=== PATIENT | female | born 1955 | race Caucasian/White ===

== ENCOUNTER 2022-07-23 10:58 | Emergency (ER) | payer MEDICARE ==
[2022-07-23] MEDS ORDERED: Sodium Chloride 0.9% 10 ML Syringe FLUSH PRN (11:00)
[2022-07-23] MEDS ORDERED: Pantoprazole 40 MG Vial IVPUSH ONE (11:01)
[2022-07-23] MEDS ORDERED: HYDROmorphone 0.5 MG/0.5 ML Syringe IVPUSH ONE (11:01)
[2022-07-23] MEDS ORDERED: Sodium Chloride 0.9% 500 ML IV ONE (11:02)
[2022-07-23] MEDS ORDERED: Iopamidol 612 MG/ML 100 ML Bottle IV SCH (11:15)
[2022-07-23] MEDS ORDERED: Sodium Chloride 0.9% 75 ML IV SCH (11:15)
[2022-07-23] MEDS ORDERED: Acetaminophen 500 MG Tab PO ONE (11:21)
[2022-07-23 11:26] LABS: ESTIMATED GFR 82 mL/min (>60)
[2022-07-23] MEDS ORDERED: Magnesium Sulfate/Water 2 GM in Premix Bag 1 BAG IV ONE (11:59)
[2022-07-23] MEDS ORDERED: Potassium Chloride 20 MEQ Tab.ER PO ONE (11:59)
[2022-07-23] MEDS: Potassium Chloride 10 MEQ in Premix Bag 1 BAG IV SCH ×2 (12:16→13:11)
[2022-07-23] MEDS ORDERED: Cephalexin 250 MG Cap PO ONE (13:13)
== END 2022-07-23 15:30 | disposition home or self-care (01) ==
LOC: JP.ED 10:58
DX: K52.9 Noninfective gastroenteritis and colitis, unspecified (principal); L03.115 Cellulitis of right lower limb; M06.9 Rheumatoid arthritis, unspecified; E87.6 Hypokalemia; I10 Essential (primary) hypertension; R00.0 Tachycardia, unspecified; F17.210 Nicotine dependence, cigarettes, uncomplicated; Z88.8 Allergy status to other drugs, medicaments and biological substances
CPT/HCPCS: 36415; 74177; 80053; 83605; 83690; 85025; 86140; 87040; 93005; 93010; 96365; 96366; 96368; 96375; 99283; 99284-25; A9270-GY; C9113; J1170; J3475; J3480; J3490; J7040; Q9967

== ENCOUNTER 2023-01-09 09:15 | Emergency (ER) | payer MEDICARE ==
[2023-01-09] MEDS ORDERED: Sodium Chloride 0.9% 10 ML Syringe FLUSH PRN (09:32)
[2023-01-09 09:53] LABS: BASOPHILS ABSOLUTE AUTO 0.08 K/uL (0.00-0.10); HEMATOCRIT 39.1 % (34.3-46.0); HEMOGLOBIN 14.1 g/dL (11.2-15.5); IMMATURE GRAN ABSOLUTE AUTO 0.03 K/uL (0.00-0.23); IMMATURE GRAN PERCENT AUTO 0.4 % (0.0-0.7); LYMPHOCYTES ABSOLUTE AUTO 2.33 K/uL (0.8-3.3); LYMPHOCYTES PERCENT AUTO 28.5 % (11.4-47.7); MEAN CORPUSCULAR HEMOGLOBIN 31.3 pg (31.6-35.5); MEAN CORPUSCULAR HGB CONC 36.1 g/dL (31.6-35.5); MEAN CORPUSCULAR VOLUME 86.7 fL (81.4-99.0); MONOCYTES PERCENT AUTO 8.6 % (3.3-12.6); NEUTROPHILS ABSOLUTE AUTO 5.03 K/uL (1.0-7.6); NEUTROPHILS PERCENT AUTO 61.5 % (40.0-78.1); PLATELET COUNT,PLT 230 K/uL (130-375); RED BLOOD CELL COUNT 4.51 M/uL (3.77-5.24); WHITE BLOOD CELL COUNT,WBC 8.2 K/uL (3.2-11.0)
[2023-01-09 10:18] LABS: CALCIUM 9.2 mg/dL (8.5-10.1); CREATININE 1.1 mg/dL (0.6-1.0); EST CRCL DRUG DOSING (CG) 49.58 mL/min; POTASSIUM,K 3.4 mmol/L (3.6-5.2)
[2023-01-09 10:27] LABS: ANION GAP 10.4 mmol/L (5.0-14.0)
[2023-01-09 10:34] LABS: PROTHROMBIN TIME 10.5 sec (9.2-10.6); PTT,PARTIAL THROMBOPLSTIN TIME 22.1 sec (21.8-27.3)
[2023-01-09] MEDS ORDERED: Ketorolac 30 MG/ML SDV IVPUSH ONE (10:53)
== END 2023-01-09 11:37 | disposition home or self-care (01) ==
LOC: JP.ED 09:15
DX: F41.9 Anxiety disorder, unspecified (principal); F43.9 Reaction to severe stress, unspecified; E87.6 Hypokalemia; M06.9 Rheumatoid arthritis, unspecified; I10 Essential (primary) hypertension; I25.2 Old myocardial infarction; J45.909 Unspecified asthma, uncomplicated; Z86.16 Personal history of COVID-19; Z88.8 Allergy status to other drugs, medicaments and biological substances; Z79.899 Other long term (current) drug therapy
CPT/HCPCS: 36415; 71045; 80048; 84484; 85025; 85379; 85610; 85730; 96374; 99285; J1885; J3490; 99284